=== PATIENT | female | born 1955 | race Caucasian/White ===

== ENCOUNTER 2024-04-11 09:14 | Emergency (ER) | payer BC ==
--- NOTE | 2024-04-11 09:22 | ERPHSYRPT ---
- History of Present Illness Time Seen by Provider: 04/11/24 09:21 Source: patient, family Exam Limitations: no limitations Physician History: This is a 68-year-old white female patient who has never been to our emergency department the past and has no prior twelve-lead EKG to compare things to and presents with 2-day history of dizziness and blurred vision. She states that she has had this issue in the past. Approxi-1 year ago she had short-lived dizziness when she was status post a gastric bypass surgery became anemic. She has not noticed any blood loss either acutely or chronically. Patient denies chest pain. Patient denies shortness of breath. Patient does not have a headache. Patient has a history of "brainstem decompression" to treat trigeminal neuralgia. She has had 2 procedures for this. Patient was sent to us from the urgent care center. Patient has had nausea but no vomiting. She denies flulike symptoms. Timing/Duration: day(s) (2) Severity: moderate Character of Deficits: vision problems Deficits: cannot stand (Secondary to dizziness), cannot walk (Secondary to dizziness), off balance (Secondary to dizziness) Baseline/Normal Cognition: alert oriented x 3 Current Cognition: alert oriented x 3 Baseline Gait: walks w/o assistance Associated Symptoms: nausea, vision changes (Dizziness and blurred vision, vertigo) Allergies/Adverse Reactions: clopidogrel [From Plavix] Allergy (Verified 04/11/24 09:45) Hives Home Medications: Aspirin 81 mg PO DAILY 04/11/24 [History] Escitalopram Oxalate [Lexapro] 20 mg PO DAILY 04/11/24 [History] Gabapentin [Neurontin ] 300 mg PO TID 04/11/24 [History] Isosorbide Mononitrate [Isosorbide Mononitrate ER] 120 mg PO QAM 04/11/24 [H istory] Metoprolol Tartrate 50 mg [Lopressor 50 MG] 50 mg PO BID 04/11/24 [History] Prasugrel HCL 10 MG [Prasugrel] 10 mg PO DAILY 04/11/24 [History] Ranolazine [Ranolazine ER] 1,000 mg PO BID 04/11/24 [History] Rosuvastatin Calcium 10 mg PO DAILY 04/11/24 [History] carBAMazepine [Carbamazepine ER] 200 mg PO TID 04/11/24 [History] Travel Risk - International Travel Have you traveled outside of the country in past 3 weeks: No - Emerging Infectious Disease Are you exhibiting symptoms associated with any current EIDs: No - Review of Systems Constitutional: No Symptoms Eyes: Vision Changes (Dizziness, blurred vision), Double Vision Ears, Nose, & Throat: No Symptoms Respiratory: No Symptoms Cardiac: No Symptoms Abdominal/Gastrointestinal: No Symptoms Genitourinary Symptoms: No Symptoms Musculoskeletal: No Symptoms Skin: No Symptoms Neurological: Dizziness, Vertigo, Other (Double vision) Psychological: No Symptoms Endocrine: No Symptoms Hematologic/Lymphatic: No Symptoms Immunological/Allergic: No Symptoms All Other Systems: Reviewed and Negative - Past Medical History Pertinent Past Medical History: Yes - Past Surgical History Past Surgical History: Yes - Nursing Vital Signs Nursing Vital Signs: Initial Vital Signs Temperature 97.0 F 04/11/24 09:33 Pulse Rate 53 L 04/11/24 09:33 Respiratory Rate 16 04/11/24 09:33 Blood Pressure 166/68 04/11/24 09:33 O2 Sat by Pulse Oximetry 97 04/11/24 09:33 Pain Scale Pain Intensity 0 - Amy Coma Scale Best Eye Response (Amy): (4) open spontaneously Best Verbal Response (Amy): (5) oriented Best Motor Response (Amy): (6) obeys commands Amy Total: 15 - Physical Exam General Appearance: mild distress, alert, anxiety, obese Eye Exam: bilateral eye: normal inspection, PERRL, EOMI Ears, Nose, Throat Exam: normal ENT inspection, TMs normal, moist mucous membranes Neck Exam: normal inspection, non-tender, supple, full range of motion Respiratory: normal breath sounds, lungs clear, airway intact, No chest tenderness, No respiratory distress Cardiovascular: regular rate/rhythm, normal heart sounds, normal peripheral pulses Gastrointestinal: soft, normal bowel sounds, No tenderness Pelvic Exam: not done Rectal Exam: not done Back Exam: normal inspection, normal range of motion, No CVA tenderness, No vertebral tenderness Extremity Exam: normal inspection, normal range of motion, pelvis stable Mental Status: alert, oriented x 3, 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 Exam: normal hearing, normal speech, PERRL, tongue midline Motor/Sensory: no motor deficit, no sensory deficit, no pronator drift Skin Exam: normal color, warm, dry SpO2 Interpretation: normal O2 Delivery: Room Air - Course Nursing assessment & vital signs reviewed: Yes Ordered Tests: Active Orders 24 hr Category Date Time Status Cardiovascular Specialist STAT Care 04/11/24 09:22 Active EKG-ER Only STAT Care 04/11/24 09:22 Active IV Insertion STAT Care 04/11/24 09:22 Active NPO (ED) STAT Care 04/11/24 09:22 Active Pulse Oximetry (ED) STAT Care 04/11/24 09:22 Active HEAD WITHOUT CONTRAST [CT] Stat Exams 04/11/24 09:16 Completed MRA BRAIN WITHOUT CONTRAST [MRI] Stat Exams 04/11/24 10:02 Completed MRI BRAIN W/O CONTRAST [MRI] Stat Exams 04/11/24 10:02 Completed CBC W DIFF Stat Lab 04/11/24 09:30 Completed CMP Stat Lab 04/11/24 09:30 Completed MAGNESIUM Stat Lab 04/11/24 09:30 Completed TSH [TSH, 3RD Generation] Stat Lab 04/11/24 09:30 Completed UA W/RFX UR CULTURE Stat Lab 04/11/24 13:01 Completed Medication Summary Generic Name Dose Route Start Last Admin Trade Name Freq PRN Reason Stop Dose Admin Ondansetron HCl 4 mg 04/11/24 09:40 04/11/24 10:01 Ondansetron Hcl 4 Mg/2 Ml Vial IV 05/11/24 09:39 4 mg Q6H PRN PRN Administration NAUSEA/VOMITING Discontinued Medications Generic Name Dose Route Start Last Admin Trade Name Freq PRN Reason Stop Dose Admin Meclizine HCl 25 mg 04/11/24 09:41 04/11/24 10:01 Meclizine Hcl 25 Mg Tablet PO 04/11/24 09:42 25 mg STAT ONE Administration Meclizine HCl Confirm 04/11/24 09:59 Meclizine Hcl 25 Mg Tablet Administered 04/11/24 10:00 Dose 25 mg .ROUTE .STK-MED ONE Lab/Rad Data: Laboratory Result Diagrams 04/11/24 09:30 04/11/24 09:30 Laboratory Results 04/11/24 04/11/24 04/11/24 Range/Units 13:01 09:30 09:30 WBC (3.98-10.04) x10^3/uL RBC (3.93-5.22) x10^6/uL Hgb (11.2-15.7) g/dL Hct (34.1-44.9) % MCV (79.4-94.8) fL MCH (25.6-32.2) pg MCHC (32.2-35.5) g/dL RDW (11.7-14.4) % Plt Count (182-369) x10^3/uL MPV (9.4-12.3) fL Gran % (34.0-71.1) % Immature Gran % (Auto) (0.001-0.429) % Nucleat RBC Rel Count (0.00-0.2) % Eos # (Auto) (0.04-0.36) x10^3/uL Immature Gran # (Auto) (0.001-0.031) x10^3u/L Absolute Lymphs (auto) (1.18-3.74) x10^3/uL Absolute Monos (auto) (0.24-0.86) x10^3/uL Absolute Nucleated RBC (0.00-0.012) x10^3u/L Lymphocytes % (19.3-51.7) % Monocytes % (4.7-12.5) % Eosinophils % (0.7-5.8) % Basophils % (0.1-1.2) % Absolute Granulocytes (1.56-6.13) x10^3/uL Basophils # (0.01-0.08) x10^3/uL Sodium 130 L (135-145) mmol/L Potassium 4.6 (3.5-5.1) mmol/L Chloride 100 (98-107) mmol/L Carbon Dioxide 21 L (22-30) mmol/L Anion Gap 14.3 (5-15) MEQ/L BUN 20 H (7-17) mg/dL Creatinine 0.62 (0.52-1.04) mg/dL Estimated GFR 98.2 ML/MIN Glucose 104 (74-106) mg/dL Calcium 8.8 (8.4-10.2) mg/dL Magnesium 2.0 (1.6-2.3) mg/dL Total Bilirubin 0.40 (0.2-1.3) mg/dL AST 27 (14-36) U/L ALT 15 (0-35) U/L Alkaline Phosphatase 83 (38-126) U/L Serum Total Protein 7.2 (6.3-8.2) g/dL Albumin 4.2 (3.5-5.0) g/dL Free T4 (0.78-2.19) ng/dL TSH 3rd Generation 0.946 (0.470-4.680) mIU/L Urine Color Yellow (Yellow) Urine Appearance Clear (Clear) Urine pH 6.0 (4.6-8.0) Ur Specific Cardinal 1.020 (1.005-1.030) Urine Protein Negative (Negative) Urine Glucose (UA) Negative (Negative) mg/dL Urine Ketones Negative (Negative) Urine Blood Negative (Negative) Urine Nitrite Negative (Negative) Urine Bilirubin Negative (Negative) Urine Urobilinogen 1.0 A (0.2) mg/dL Ur Leukocyte Esterase Small A (Negative) U Hyaline Cast (Auto) NONE SEEN (0-2) /LPF Urine Microscopic RBC 0-2 (0-5) /HPF Urine Microscopic WBC 6-10 A (0-5) /HPF Ur Epithelial Cells None Seen (None Seen) /HPF Urine Bacteria None Seen (None Seen) /HPF Urine Culture Reflexed NO (NO) 04/11/24 04/11/24 Range/Units 09:30 09:25 WBC 3.9 L (3.98-10.04) x10^3/uL RBC 4.11 (3.93-5.22) x10^6/uL Hgb 12.6 (11.2-15.7) g/dL Hct 38.6 (34.1-44.9) % MCV 93.9 (79.4-94.8) fL MCH 30.7 (25.6-32.2) pg MCHC 32.6 (32.2-35.5) g/dL RDW 12.7 (11.7-14.4) % Plt Count 215 (182-369) x10^3/uL MPV 10.8 (9.4-12.3) fL Gran % 45.6 (34.0-71.1) % Immature Gran % (Auto) 0.5 H (0.001-0.429) % Nucleat RBC Rel Count 0.0 (0.00-0.2) % Eos # (Auto) 0.05 (0.04-0.36) x10^3/uL Immature Gran # (Auto) 0.02 (0.001-0.031) x10^3u/L Absolute Lymphs (auto) 1.58 (1.18-3.74) x10^3/uL Absolute Monos (auto) 0.44 (0.24-0.86) x10^3/uL Absolute Nucleated RBC 0.00 (0.00-0.012) x10^3u/L Lymphocytes % 40.5 (19.3-51.7) % Monocytes % 11.3 (4.7-12.5) % Eosinophils % 1.3 (0.7-5.8) % Basophils % 0.8 (0.1-1.2) % Absolute Granulocytes 1.78 (1.56-6.13) x10^3/uL Basophils # 0.03 (0.01-0.08) x10^3/uL Sodium (135-145) mmol/L Potassium (3.5-5.1) mmol/L Chloride (98-107) mmol/L Carbon Dioxide (22-30) mmol/L Anion Gap (5-15) MEQ/L BUN (7-17) mg/dL Creatinine (0.52-1.04) mg/dL Estimated GFR ML/MIN Glucose (74-106) mg/dL Calcium (8.4-10.2) mg/dL Magnesium (1.6-2.3) mg/dL Total Bilirubin (0.2-1.3) mg/dL AST (14-36) U/L ALT (0-35) U/L Alkaline Phosphatase (38-126) U/L Serum Total Protein (6.3-8.2) g/dL Albumin (3.5-5.0) g/dL Free T4 0.69 L (0.78-2.19) ng/dL TSH 3rd Generation (0.470-4.680) mIU/L Urine Color (Yellow) Urine Appearance (Clear) Urine pH (4.6-8.0) Ur Specific Cardinal (1.005-1.030) Urine Protein (Negative) Urine Glucose (UA) (Negative) mg/dL Urine Ketones (Negative) Urine Blood (Negative) Urine Nitrite (Negative) Urine Bilirubin (Negative) Urine Urobilinogen (0.2) mg/dL Ur Leukocyte Esterase (Negative) U Hyaline Cast (Auto) (0-2) /LPF Urine Microscopic RBC (0-5) /HPF Urine Microscopic WBC (0-5) /HPF Ur Epithelial Cells (None Seen) /HPF Urine Bacteria (None Seen) /HPF Urine Culture Reflexed (NO) - Progress Progress: improved, re-examined Progress Note: 04/11/24 09:54 My medical decision making and the assignment of moderate to high complexity to this patient's medical issue today is based on review of the patient's past medical history, review patient's medication list, review patient drug allergy list, history present illness and physical findings on examination. The workup in this patient includes placement of intravenous line, infusion of low rate IV fluids, infusion of Zofran intravenously, oral meclizine 25 mg, CBC, CMP, stat CT scan of the brain without contrast, urinalysis, twelve-lead EKG, magnesium level, free T4 and TSH levels. Differential diagnosis includes but is not limited to vertigo, sinus infection, acute intracranial abnormality, CVA, electrolyte abnormalities, arrhythmia, urinary tract infection The CT scan of the head without contrast was interpreted by the radiologist and I reviewed the impression. Pression says previous bilateral occipital craniotomies remain the CT scan of the head without contrast is within normal limits. 04/11/24 12:16 MRI of brain without contrast is negative per radiologist interpretation. MRA of brain was interpreted by the radiologist. The impression states negative [place]. 04/11/24 13:35 I interpreted the patient's laboratory data results. Patient does have a mild urinary tract infection. Her symptoms have significantly improved with meclizine 25 mg[address] I spoke with Dr[address] Sher, teleneurologist that is on at this time. He is clinical impression is vestibulopathy. He recommends meclizine and referral to ENT specialist. Counseled pt/family regarding: lab results, diagnosis, rad results Medical Desision Making - Independent Historian Additional History obtained from: Spouse - Discussion of managment Care discussed with:: specialist (Teleneurologist, Dr. Sher) Reviewed:: Test results Agreed on:: Treatment plan, need for follow-up (With ENT) - Diagnostic Testing Diagnostic test were ordered, analyzed, and reviewed by me: Yes Radiological Interpretation: Reviewed by me, Teleradiologist Report - Risk of complications The pt has a mod risk of morbidity or mortality based on: Need for prescription drug management - Departure Departure Disposition: Home Clinical Impression: UTI (urinary tract infection), Vestibulopathy Condition: Stable Critical Care Time: No Referrals: Provider,Unknown [NON-STAFF PHY W/O PRIVILEGES] - Follow up/PCP as directed Additional Instructions: Drink plenty of fluids. Take your antibiotics and meclizine as prescribed. Take your other medications as prescribed. Call an ENT specialist. We provided you with a couple of physician clinic names. Prescriptions: Meclizine HCl 25 mg [Antivert 25 mg] 25 mg PO Q8H PRN #20 tablet PRN Reason: Dizziness Cephalexin Mh 500 mg [Keflex 500 mg] 500 mg PO TID #21 cap
--- NOTE | 2024-04-11 09:32 | XRAY ---
Indication: Stroke. Dizziness. Multiple contiguous axial images obtained through the head without contrast. Comparison: None Bilateral occipital craniotomies. Normal appearing brain parenchyma, ventricles, and bony calvarium for patient's age. Visualized paranasal sinuses and mastoid air cells are clear. Impression: Previous bilateral occipital craniotomies. Remaining CT head without contrast exam is normal.
[2024-04-11 09:35] LABS: Absolute Neutrophil Ct (ANC) 1.78 x10^3/uL (1.56-6.13); BASOPHIL % 0.8 % (0.1-1.2); Basophil (Absolute #) 0.03 x10^3/uL (0.01-0.08); Eosinophil % 1.3 % (0.7-5.8); Eosinophil (Absolute #) 0.05 x10^3/uL (0.04-0.36); Hematocrit 38.6 % (34.1-44.9); Hemoglobin 12.6 g/dL (11.2-15.7); IMMATURE GRAN # 0.02 x10^3u/L (0.001-0.031); IMMATURE GRAN % 0.5 % (0.001-0.429); Lymphocyte (Absolute #) 1.58 x10^3/uL (1.18-3.74); Lymphocytes % 40.5 % (19.3-51.7); Mean Cell Volume 93.9 fL (79.4-94.8); Mean Corpuscular Hemoglobin 30.7 pg (25.6-32.2); Mean Corpuscular Hgb Concent. 32.6 g/dL (32.2-35.5); Mean Platelet Volume 10.8 fL (9.4-12.3); Monocyte (Absolute #) 0.44 x10^3/uL (0.24-0.86); Monocytes % 11.3 % (4.7-12.5); Neutrophil % 45.6 % (34.0-71.1); Platelet Count 215 x10^3/uL (182-369); Red Blood Count 4.11 x10^6/uL (3.93-5.22); Red Cell Distribution Width 12.7 % (11.7-14.4); White Blood Count 3.9 x10^3/uL (3.98-10.04)
[2024-04-11 09:45] VITALS: TEMP 97
[2024-04-11 09:48] LABS: ALBUMIN 4.2 g/dL (3.5-5.0); ANION GAP 14.3 MEQ/L (5-15); BILIRUBIN,TOTAL 0.4 mg/dL (0.2-1.3); Calcium 8.8 mg/dL (8.4-10.2); Creatinine 1 0.62 mg/dL (0.52-1.04); EST GLOMERULAR FILTRATION RATE 98.2 ML/MIN; Potassium 4.6 mmol/L (3.5-5.1); Total Protein 7.2 g/dL (6.3-8.2)
[2024-04-11] MEDS ORDERED: ANTIVERT 25 MG ONE (09:59)
[2024-04-11] MEDS ORDERED: Zofran 4 MG/2 ML VIAL ONE (09:59)
[2024-04-11] MEDS: ANTIVERT 25 MG PO ONE (10:01)
[2024-04-11] MEDS: Zofran 4 MG/2 ML VIAL IV PRN (10:01)
--- NOTE | 2024-04-11 11:32 | XRAY ---
Indication: Blurred vision. Dizziness. Normal CT head exam earlier in the day.. Sagittal, coronal, and axial MRI brain performed without contrast using T1, T2, FLAIR, diffusion, and ADC sequences. Comparison: None Ventriculosulcal pattern appears symmetric. No acute intracranial hemorrhage, abnormal extra-axial fluid collection, or mass effect. Diffusion images negative for restricted signal. Fourth ventricle is midline without hydrocephalus. 7/8 cranial nerve complex bilateral symmetric. Normal flow void signal within the major intracerebral circulation. Normal appearing craniocervical junction and sella turcica. Paranasal sinuses are clear. Impression: Negative MRI brain without contrast exam.
--- NOTE | 2024-04-11 12:12 | XRAY ---
Indication: Blurred vision. Dizziness. Normal CT head exam earlier in the day. Multi slab 3-D [id number] MRA [place] performed. Comparison: None Distal internal carotid arteries are bilaterally symmetric without critical stenosis or obstruction. Normal carotid terminus with normal branching A1 and M1 segments bilaterally. Anatomic variant for origin left posterior cerebral artery. Posterior circulation demonstrates normal MRA appearance of the distal left/right vertebral, basilar, left/right posterior cerebral, and left/right superior cerebellar arteries. Impression: Negative MRA [place].
[2024-04-11 12:32] VITALS: O2SAT 97
[2024-04-11 13:02] VITALS: BP 160/84; PULSE 59; RESP 12
[2024-04-11 13:11] LABS: Appearance Clear (Clear); Bacteria None Seen /HPF (None Seen); Bilirubin Negative (Negative); Blood Negative (Negative); Epithelial Cells None Seen /HPF (None Seen); Glucose, Urine Negative (Negative); Hyaline Casts NONE SEEN /LPF (0-2); Ketones Negative (Negative); Leukocyte Esterase Small (Negative); Nitrite Negative (Negative); Protein,Urine Dip Negative (Negative); RBC 0-2 /HPF (0-5)
[2024-04-11 13:17] LABS: ADD URINE CULTURE? NO (NO)
== END 2024-04-11 14:11 | disposition home or self-care (01) ==
LOC: ED 09:14
DX: N39.0 Urinary tract infection, site not specified (principal); H81.20 Vestibular neuronitis, unspecified ear; H53.8 Other visual disturbances; R11.0 Nausea; Z79.02 Long term (current) use of antithrombotics/antiplatelets; Z79.899 Other long term (current) drug therapy
CPT/HCPCS: 36000; 36415; 70450; 70544; 70551; 80053; 81001; 83735; 84439; 84443; 85025; 93005; 93041; 94760; 96374; 99284; J2405; A9270-GY